=== PATIENT | female | born 1995 | race Caucasian/White ===

== ENCOUNTER 2022-03-31 21:09 | Emergency (ER) | payer OTHER, SELFPAY ==
--- NOTE | ~2022-03-31 | XR_ITS ---
EXAM: XR knee LT min 4V HISTORY: FALL, PAIN, ANTERIOR BRUISING . COMPARISON: None available. FINDINGS: Normal mineralization. No fracture or dislocation. No lytic or blastic lesion. Mild medial joint space narrowing. No erosion or periosteal change. Anterior soft tissue swelling. IMPRESSION: No acute osseous finding in the left knee. Reviewed, dictated and finalized at location K.
--- NOTE | ~2022-03-31 | XR_ITS ---
EXAM: XR ankle RT min 3V HISTORY: fall, pain, BRUISING/SWELLING . COMPARISON: 03/17/2009. FINDINGS: Normal mineralization. No fracture or dislocation. No lytic or blastic lesion. Joint space s maintained. No erosion or periosteal change. Soft tissues within normal limits. IMPRESSION: No acute osseous finding in the right ankle. Reviewed, dictated and finalized at location K.
[2022-03-31 21:15] VITALS: BP 123/71; PULSE 100; RESP 18; TEMP 36.3; O2SAT 100
--- NOTE | 2022-03-31 22:17 | PC.NURSE ---
TO ED WITH C/O RIGHT ANKLE AND RIGHT KNEE PAIN PAIN AFTER FALL TODAY.
--- NOTE | 2022-03-31 22:59 | ED.FALL ---
HPI - Fall General Chief Complaint: Fall Stated Complaint: left knee/right ankle pain Time Seen by Provider: 03/31/22 22:43 Source: patient and RN notes reviewed Mode of arrival: ambulatory Limitations: no limitations History of Present Illness HPI Narrative: This is a 26 year old female who presents for evaluation of right ankle and left knee pain s/p fall. Patient states she was walking when she twisted her ankle on a curb. This caused her to his her left knee on the ground. She has pain to right lateral ankle with movement and ambulation. She has not taken anything for pain. She denies LOC or hit her head when she fell. She denies any rib injury. Related Data Allergies Allergy/AdvReac Type Severity Reaction Status Date / Time No Known Allergies Allergy Mild Unverified 11/29/12 16:20 Review of Systems Review of Systems: All systems reviewed & are unremarkable except as noted in HPI and below Constitutional: Constitutional: Denies chills and Denies fever(s) Musculoskeletal: Musculoskeletal: Reports joint swelling (right ankle) Neurologic: Denies headache(s) [facility] Past Medical History Medical History (Updated 03/31/22 @ 23:22 by Marti Myles MD) Patient denies medical problems Surgical History Surgical History (Updated 03/31/22 @ 23:09 by Marti Myles MD) No pertinent past surgical history Social History Social History (Updated 03/31/22 @ 23:09 by Marti Myles MD) Smoking status: Never smoker Exam Const: General: no acute distress and alert Nutritional Appearance: obese Orientation/consciousness: patient oriented x3 Eyes: EOM: EOMs intact bilaterally Resp: Effort & Inspection: normal respiratory effort and no retractions Auscultation: clear to auscultation bilaterally Cardio: Rate: regular rate Rhythm: regular rhythm Heart sounds: no murmurs Skin: Rashes: no rashes Other: abrasion to right lateral ankle Neuro: General: patient oriented x3, moves all extremities and CN's II-XI intact bilaterally Extrem: Other: right lateral ankle swelling with abrasion, there is also bruising and abrasion to left lower leg. no knee swelling. pulses intact. Psych: Mental Status: mental status grossly normal Affect: normal affect Course Reevaluation(s) Reevaluation #1: I Discussed with patient xrays were negative for fracture. I Discussed treatment with rest, ice, possible david bandage. I discussed discharge plan. Date: 03/31/22 Time: 23:10 Vital Signs Vital signs: Vital Signs Temperature 97.3 F L 03/31/22 21:15 Pulse Rate 100 03/31/22 21:15 Respiratory Rate 18 03/31/22 21:15 Blood Pressure 123/71 03/31/22 21:15 Pulse Oximetry 100 03/31/22 21:15 Temperature 97.3 F L 03/31/22 21:15 Pulse Rate 77 04/01/22 00:27 Respiratory Rate 18 04/01/22 00:27 Blood Pressure 115/68 04/01/22 00:27 Pulse Oximetry 98 04/01/22 00:27 MDM - Fall Imaging Data Radiologist's impression: ITS Impressions Knee X-Ray 03/31/22 21:47 IMPRESSION: No acute osseous finding in the left knee. Ankle X-Ray 03/31/22 21:48 IMPRESSION: No acute osseous finding in the right ankle. Discharge Plan Discharge Clinical Impression: Right ankle sprain Qualifiers: Encounter type: initial encounter Contusion of left lower extremity Qualifiers: Encounter type: initial encounter Qualified Code(s): S80.12XA - Contusion of left lower leg, initial encounter Patient Disposition: Home, Self-Care Condition: Stable Instructions: Antibiotic Form, Ankle Sprain (ED), Contusion in Adults (ED) Additional Instructions: Today you were evaluated for right ankle and left knee injury. Your xrays were negative for fracture. Apply ice intermittent to help with pain and bruising. You can wrap your right ankle with ankle brace to help stabilize. Take medication such as ibuprofen and aleve for your pain. Prescriptions: New ibuprofen 800 mg tabl
[2022-03-31] MEDS: IBUPROFEN 400 MG TABLET 800 MG PO (23:07)
[2022-04-01 00:27] VITALS: BP 115/68; PULSE 77; RESP 18; O2SAT 98
== END 2022-04-01 00:44 | disposition home or self-care (01) ==
PROVIDERS: Emergency Provider General Practice
DX: S93.401A Sprain of unspecified ligament of right ankle, initial encounter (principal); S80.12XA Contusion of left lower leg, initial encounter; W10.1XXA Fall (on)(from) sidewalk curb, initial encounter
CPT/HCPCS: 73564; 73610; 99284; A9270

== ENCOUNTER 2022-04-24 11:46 | Emergency (ER) | payer OTHER, SELFPAY ==
[2022-04-24 12:00] VITALS: BP 135/74; PULSE 100; RESP 14; TEMP 36.7; O2SAT 97
--- NOTE | 2022-04-24 12:27 | ED.EYEPROB ---
HPI - Eye Problem General Chief complaint: Eye Problems Stated complaint: poked eye last night Time Seen by Provider: 04/24/22 12:20 History of Present Illness HPI Narrative: Pt poked herself in right eye with bristles of tooth bruch last night and has pain in right eye. Related Data Allergies Allergy/AdvReac Type Severity Reaction Status Date / Time No Known Allergies Allergy Mild Unverified 11/29/12 16:20 Review of Systems Review of Systems: All systems reviewed & are unremarkable except as noted in HPI and below Eyes: Eyes: Reports as per HPI, Reports no additional eye complaints and Reports photophobia PMFSH Past Medical History Medical History (Updated 04/24/22 @ 13:18 by Cynthia King III, DO) Patient denies medical problems Surgical History Surgical History (Updated 03/31/22 @ 23:09 by Marti Myles MD) No pertinent past surgical history Social History Social History (Updated 03/31/22 @ 23:09 by Marti Myles MD) Smoking status: Never smoker Exam Const: General: healthy appearing and no acute distress Nutritional Appearance: well nourished Orientation/consciousness: patient oriented x3 Limitations: no limitations HENMT: Head: normal to inspection Eyes: Pupils: Equal, round and reactive pupils present EOM: EOMs intact bilaterally Direct Ophthalmoscopy: photophobia Other: no FB seen, after tetracaine and fluorescein applied corneal abrasion noted over lower pupil Neck: Neck: normal visual inspection Chest: Chest palpation & inspection: normal inspection of the chest Resp: Effort & Inspection: normal respiratory effort Auscultation: clear to auscultation bilaterally Cardio: Rate: regular rate Rhythm: regular rhythm Skin: General skin exam: normal color Wounds: no wounds Neuro: General: patient oriented x3, moves all extremities and no meningeal signs Cranial nerves: Yes Nystagmus not present Speech: normal speech Extrem: General: normal to inspection Psych: Mental Status: mental status grossly normal Affect: normal affect Attitude: cooperative Course Vital Signs Vital signs: Vital Signs Temperature 98.0 F 04/24/22 12:00 Pulse Rate 100 04/24/22 12:00 Respiratory Rate 14 04/24/22 12:00 Blood Pressure 135/74 04/24/22 12:00 Pulse Oximetry 97 04/24/22 12:00 Oxygen Delivery Room Air 04/24/22 12:00 Temperature 98.0 F 04/24/22 12:00 Pulse Rate 67 04/24/22 13:45 Respiratory Rate 16 04/24/22 13:45 Blood Pressure 118/70 04/24/22 13:45 Pulse Oximetry 100 04/24/22 13:45 Oxygen Delivery Room Air 04/24/22 12:00 Discharge Plan Discharge Clinical Impression: Corneal abrasion Patient Disposition: Home, Self-Care Condition: Improved Instructions: Antibiotic Form Prescriptions: New tramadol-acetaminophen 37.5-325 mg tablet 1 tablet PO Q6H PRN (Reason: pain) Qty: 10 0RF gentamicin 0.3 % drops 2 drp RIGHT EYE Q4H Qty: 5 0RF No Action ibuprofen 800 mg tablet 800 mg PO TID PRN (Reason: pain) Qty: 14 0RF Follow-up/Referrals: PHYSICIAN,CARTOGRAPHY/MAPPING TECHNICIAN [Primary Care Provider] - Stand Alone Forms: Work/School Release IP
[2022-04-24 13:45] VITALS: BP 118/70; PULSE 67; RESP 16; O2SAT 100
== END 2022-04-24 13:45 | disposition home or self-care (01) ==
PROVIDERS: Emergency Provider Emergency Medicine
DX: S05.00XA Injury of conjunctiva and corneal abrasion without foreign body, unspecified eye, initial encounter (principal); W22.8XXA Striking against or struck by other objects, initial encounter
CPT/HCPCS: 99283; A9270

== ENCOUNTER 2024-02-29 19:04 | Emergency (ER) | payer OTHER, SELFPAY ==
[2024-02-29 19:24] VITALS: BP 116/68; PULSE 94; RESP 16; TEMP 36.6; O2SAT 99
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
== END 2024-02-29 22:35 | disposition home or self-care (01) ==
LOC: ANHED 22:24
PROVIDERS: Emergency Provider Emergency Medicine
DX: S39.012A Strain of muscle, fascia and tendon of lower back, initial encounter (principal); V43.52XA Car driver injured in collision with other type car in traffic accident, initial encounter
CPT/HCPCS: 99283